=== PATIENT | male | born 1995 | race African-American/Black ===

== ENCOUNTER 2023-12-20 06:37 | Emergency (ER) | payer MEDICAID ==
[2023-12-20] MEDS: diphenhydrAMINE 25 MG Cap PO ONE (11:25)
== END 2023-12-20 11:28 | disposition home or self-care (01) ==
LOC: JP.ED 06:37
DX: F15.10 Other stimulant abuse, uncomplicated (principal)
CPT/HCPCS: 99283; A9270-GY